=== PATIENT | male | born 2005 | race Caucasian/White ===

== ENCOUNTER 2024-12-21 18:53 | Emergency (ER) | payer BC, OTHER, SELFPAY ==
[2024-12-21] MEDS ORDERED: Ondansetron PF 4 MG/2 ML Vial ONE (19:18)
[2024-12-21 19:31] LABS: Hematocrit 51.2 % (42.0-52.0); Hemoglobin 18.2 g/dL (14.0-18.0); Mean Corpuscular Hemoglobin 29.7 pg (27.0-31.0); Mean Corpuscular Volume 83.7 fl (78.0-98.0); Platelet Count 277 10x3/uL (130-400); Red Blood Cell (RBC) Count 6.12 mill/uL (4.70-6.10); White Blood Cell (WBC) Count 23.2 10x3/uL (4.8-10.8)
[2024-12-21 19:40] LABS: ALT (SGPT) 21 U/L (Less than 45); AST (SGOT) 41 U/L (11-34); Albumin 6.4 g/dL (3.1-4.5); Alkaline Phosphatase 68 U/L (40-110); Anion Gap 33 mmol/L (10-20); BUN (Urea Nitrogen) 31 mg/dL (8.9-20.6); Bilirubin, Total 1.2 mg/dL (0.3-1.2); CK (CPK) 389 U/L (30-200); Calc. Creatinine Clearance 0 mL/min (70-130); Calcium 12.6 mg/dL (7.8-10.44); Carbon Dioxide 14 mmol/L (22-29); Chloride 99 mmol/L (98-107); Globulin 3.6 g/dL (2.4-3.5); Glucose 119 mg/dL (70-105); Magnesium 1.7 mg/dL (1.6-2.6); Potassium 4.1 mmol/L (3.5-5.1); Sodium 142 mmol/L (136-145)
[2024-12-21 20:03] LABS: MDiff Complete? YES; Platelet Adequacy Comment Appears Adequate
== END 2024-12-21 21:15 | disposition short-term general hospital (02) ==
LOC: BURERS 18:53
DX: T67.9XXA Effect of heat and light, unspecified, initial encounter (principal); N17.9 Acute kidney failure, unspecified; E87.20 Acidosis, unspecified
CPT/HCPCS: 80053; 82550; 83735; 85025; 93005; 96361; 96374; J2405